=== PATIENT | female | born 1990 | race Two or more races ===

== ENCOUNTER 2024-12-07 19:29 | Emergency (ER) | payer OTHER, SELFPAY ==
[2024-12-07 19:30] VITALS: BMI 24.9
--- NOTE | 2024-12-07 19:33 | XR_ITS ---
Examination: Fingers, right hand 3 views second digit 3 views Technique: AP, oblique, lateral views second digit right hand 3 views. Exam date and time: December 07, 2024 1935 hrs. Indications: Injury to the hand today with second digit pain Findings: Acute fracture proximal aspect distal phalanx fifth digit, including a displaced 3 mm chip fracture noted on the lateral view off the dorsal base of the distal phalanx second digit Impression: Acute fracture proximal aspect distal phalanx including a displaced 3 mm chip fracture noted on the lateral view off the dorsal base of the distal phalanx second digit
[2024-12-07 19:44] VITALS: BP 150/88; PULSE 96; RESP 18; TEMP 36.7; O2SAT 97
[2024-12-07] MEDS: DIPHTH,PERTUSS(ACELL),TET VAC 0.5 ML SYR- ADULT IMi (20:06)
--- NOTE | 2024-12-08 01:25 | PD.EDHAND ---
Upper Extremity Injury RME/HPI General Chief Complaint: Extremity Injury, Upper Stated Complaint: SMASH RIGHT INDEX FINGER WITH CAR DOOR Time Seen by Provider: 12/07/24 19:50 Arrival date/time: 12/07/24 19:29 34F with no significant PMH presents to ED with R index finger pain after it was smashed in a car door. Patient has not had a tetanus shot in the past 5 years. Limitations: no limitations Related Data Home Medications ?Medication ?Instructions ?Recorded ?Confirmed Vits W-Ca,Fe,Fa(<1MG) 1 tab PO DAILY ##0 12/17/07 () Previous Rx's ?Medication ?Instructions ?Recorded amoxicillin 875 mg-potassium 1 tab PO BID 5 days #10 tabs 12/07/24 clavulanate 125 mg tablet Allergies Allergy/AdvReac Type Severity Reaction Status Date / Time No Known Allergies Allergy Unknown Uncoded 10/23/18 19:57 Review of Systems Review of Systems Systems Reviewed: All systems reviewed, normal except as documented Constitutional Constitutional: Reports system reviewed and no additional complaints, except as documented, Denies fever(s) and Denies headache(s) ENT Ears, Nose, Mouth, and Throat: Denies disequilibrium and Denies headache(s) Cardiovascular Cardiovascular: Reports system reviewed and no additional complaints, except as documented, Denies chest pain and Denies dyspnea Respiratory Respiratory: Reports system reviewed and no additional complaints, except as documented, Denies cough and Denies dyspnea Gastrointestinal Gastrointestinal: Reports system reviewed and no additional complaints, except as documented, Denies abdominal pain, Denies nausea and Denies vomiting Musculoskeletal Musculoskeletal: Reports as per HPI and Reports arthralgias Integumentary/Breasts Skin/Breast: Reports as per HPI and Reports skin pain Neurologic Neurologic: Reports system reviewed and no additional complaints, except as documented, Denies confusion, Denies disequilibrium and Denies headache(s) Psychiatric Psychiatric: Denies confusion Past Medical History Social History SMOKING STATUS: Never smoker ED Exam General Limitations: Present no limitations General appearance: Present alert and in no apparent distress Head Head exam: Present atraumatic Eye Eye exam: Present normal appearance, PERRL and EOMI ENT ENT exam: Present normal exam, normal oropharynx and mucous membranes moist Neck Neck exam: Present normal inspection, full ROM and trachea midline Chest Chest inspection: Present normal inspection and symmetric chest wall rise Respiratory Respiratory exam: Present normal lung sounds bilaterally Cardiovascular Cardiovascular exam: Present regular rate, normal rhythm and normal heart sounds Abdominal Exam Abdominal exam: Present soft and normal bowel sounds Extremities Exam Extremities exam: Present full ROM Expanded Upper Extremity Exam Hand exam: Present full ROM (R index finger), tenderness, swelling and abrasion Back Exam Back exam: Present normal inspection and full ROM Neurological Exam Neurological exam: Present alert, oriented X3 and CN II-XII intact Psychiatric Psychiatric exam: Present normal affect and normal mood Skin Skin exam: Present warm, dry, intact and normal color Course Quality Measures none Orders Category Date Time Status Splint / Immobilizer STAT Care 12/07/24 19:51 Completed Wound Care NOW Care 12/07/24 19:51 Completed XR finger RT min 2V Stat Exams 12/07/24 19:33 Completed TET,DIP/PERT AC (Adult)-Tdap [Boostrix Adult (Tdap) Med 12/07/24 19:51 Discontinued Vacc] 0.5 ml IMI .ONCE ONE Vital Signs Vital signs: Vital Signs Temperature 98.1 F 12/07/24 19:44 Pulse Rate 96 12/07/24 19:44 Respiratory Rate 18 12/07/24 19:44 Blood Pressure 150/88 H 12/07/24 19:44 Pulse Oximetry (%) 97 12/07/24 19:44 Oxygen Delivery Method Room Air 12/07/24 19:44 O2 at 97% on RA and WNLs Extremity Injury MDM Narrative MDM Narrative:: 34F with no significant PMH presents to ED with R index finger pain after it was smashed in a car door. Patient has not had a tetanus shot in the past 5 years. Physical exam reveals mild skin abrasion proximal to the R index finger nail bed. Some tenderness. Fingernail intact. ROM mostly intact. Patient is afebrile, calm, and alert. XR reveals finger fx. Wound cleaned/irrigated and bandaged. Tdap and splint given. Will give ABX due to possible open fx. Patient data External records reviewed:: [facility] previous records Clinical information provided by:: patient Social determinants that could affect healthcare access:: none Patient has the following chronic illnesses:: none How is presenting disease/condition affected by chronic disease/condition?: no chronic disease Evaluation data The following diagnostics were reviewed and interpreted by me:: radiology exam(s) Lab and/or radiology exams considered but not ordered:: ordered Interpretation Summary: above Medications / Prescriptions Medications or Prescriptions considered but not ordered:: ordered Medication administrations:: Medication Administration History Discontinued Medications Diphtheria/Tetanus/Acell Pertussis (Diphth,Pertuss(Acell),Tet Vac 0.5 Ml Syr- Adult) 0.5 ml IMi .ONCE ONE Stop: 12/07/24 19:52 Last Admin: 12/07/24 20:06 Dose: 0.5 ml Documented By: KF above Consultations Consultation(s) initiated? (list below): No Diagnosis Upper Extremity Injury Differential Diagnosis: sprain and strain of wrist, fracture of wrist, finger sprain, dislocation of finger, Colles' fracture, fracture of hand and other (skin abrasion and finger fx) Most likely diagnosis given after review of the tests above:: skin abrasion and finger fx Admission Indicated Admission indicated?: not indicated Admission Request Was there a request for admission?: No Disposition Plan Disposition Plan: Discharge Discharge Attestation Discharge Attestation: The patient and all family members were given an opportunity to ask questions and understood the discharge instructions. Discharge instructions specifically effects, indications for sooner follow up or return to the emergency department, and the expected course of current diagnosis. Patient condition: Stable Discharge Plan Plan Patient Disposition: HOME (Self Care) Disposition Comment: Stable Prescriptions/Referrals Prescriptions/Med Rec: New amoxicillin-pot clavulanate 875-125 mg tablet 1 tab PO BID 5 Days Qty: 10 0RF No Action Vits W-Ca,Fe,Fa(<1MG) () 1 TAB tablet 1 tab PO DAILY Qty: 0 Patient Comments: TAKE ONE TAB BY MOUTH DAILY Referrals: Temporary Provider,ED [Physician] - In 1 week Problem List Clinical Impression: Abrasion of skin, Finger fracture Patient/Caregiver Discharge Instructions Education Materials: ED Crush Injury, Foot/Toe Additional Instructions: Please follow-up with PCP within 24-48 hours and return immediately if symptoms worsen. If problem persists, recommend outpatient PT and/or MRI follow-up. In the meantime, rest, use ice/heat, and/or compression. Can also see hand surgeon. Print Language: [place] Stand Alone Forms: Patient Portal Info Letter RANDAL/JANE Supervising Physician RANDAL/JANE Supervising Physician: Dr. Aguayo
== END 2024-12-07 20:50 | disposition home or self-care (01) ==
PROVIDERS: Emergency Provider Emergency Medicine; PCP Family Medicine
DX: S62.630A Displaced fracture of distal phalanx of right index finger, initial encounter for closed fracture (principal); Z23 Encounter for immunization; W20.8XXA Other cause of strike by thrown, projected or falling object, initial encounter
CPT/HCPCS: 73140; 90471; 90715; 99283